=== PATIENT | male | born 1960 ===

== ENCOUNTER 2018-06-13 11:34 | Outpatient (CLI) | payer OTHER ==
[~2018-06-13] VITALS: Ht 17.8 cm; Wt 72.1 kg
== END 2018-06-13 11:45 | disposition home or self-care (01) ==
LOC: OFIC 805 11:34
DX: R09.81 Nasal congestion (principal); R04.2 Hemoptysis

== ENCOUNTER 2018-06-14 07:49 | Outpatient (CLI) | payer OTHER | END 2018-06-14 07:55 | disposition home or self-care (01) | LOC: LAB 07:49 | DX: E87.6 Hypokalemia (principal); E55.9 Vitamin D deficiency, unspecified; I36.1 Nonrheumatic tricuspid (valve) insufficiency; I49.1 Atrial premature depolarization; I49.3 Ventricular premature depolarization; I67.2 Cerebral atherosclerosis; Z86.73 Personal history of transient ischemic attack (TIA), and cerebral infarction without residual deficits; I65.23 Occlusion and stenosis of bilateral carotid arteries; E78.2 Mixed hyperlipidemia; N18.2 Chronic kidney disease, stage 2 (mild); G47.33 Obstructive sleep apnea (adult) (pediatric); J31.0 Chronic rhinitis ==

== ENCOUNTER 2018-06-14 10:07 | Outpatient (CLI) | payer OTHER | END 2018-06-14 10:16 | disposition home or self-care (01) | LOC: TOM 10:07 | DX: R04.2 Hemoptysis (principal); J34.2 Deviated nasal septum ==

== ENCOUNTER 2018-07-04 10:32 | Outpatient (CLI) | payer OTHER ==
[~2018-07-04] VITALS: Ht 152.4 cm; Wt 71.7 kg
== END 2018-07-04 10:45 | disposition home or self-care (01) ==
LOC: OFIC 805 10:32
DX: R09.81 Nasal congestion (principal); R04.2 Hemoptysis; K21.0 Gastro-esophageal reflux disease with esophagitis